=== PATIENT | female | born 1935 | race Caucasian/White ===

== ENCOUNTER 2023-10-19 14:06 | Emergency (ER) | payer MEDICARE, OTHER ==
[~2023-10-19] VITALS: Ht 154.9 cm; Wt 65.8 kg
[2023-10-19] MEDS ORDERED: LEVO25TA2 PO (14:40)
[2023-10-19] MEDS ORDERED: CHOL100099 PO (14:40)
[2023-10-19] MEDS ORDERED: SPIR50TA5 PO (14:40)
[2023-10-19] MEDS ORDERED: LORA0.5T PO (14:41)
[2023-10-19] MEDS ORDERED: MULT-31 PO (14:41)
[2023-10-19] MEDS ORDERED: CYAN-51 PO (14:41)
[2023-10-19] MEDS ORDERED: MIRA25TA PO (14:43)
[2023-10-19] MEDS ORDERED: EVOL140S2 (14:43)
[2023-10-19] MEDS ORDERED: ONDANSETRON HCL 4 MG TABLET ONE (15:24)
[2023-10-19] MEDS ORDERED: HYDROMORPHONE 2 MG/1 ML DISP.SYRIN ONE (15:24)
[2023-10-19] MEDS: ONDANSETRON HCL 4 MG TABLET PO ONE (15:33)
[2023-10-19] MEDS: HYDROMORPHONE 1 MG/1 ML DISP.SYRIN IM ONE (15:33)
[2023-10-19] MEDS ORDERED: ACET1TAB23 PO (16:27)
[2023-10-19 16:52] VITALS: BP 147/78; TEMP 97; O2SAT 98
== END 2023-10-19 16:52 | disposition home or self-care (01) ==
LOC: ER 14:06
DX: M54.50 Low back pain, unspecified (principal); Z79.899 Other long term (current) drug therapy
CPT/HCPCS: 99284; 72100; 72202; 96372; J1170; A4606; A4663; Q0162